=== PATIENT | female | born 1990 | race Hispanic/Latino ===

== ENCOUNTER 2017-10-13 23:19 | Emergency (ER) | payer OTHER ==
[2017-10-14 00:03] VITALS: RESP 16
--- NOTE | 2017-10-14 00:58 | ED PDOC ---
HPI: General Adult Time Seen by Provider: 10/13/17 23:30 Chief Complaint (Nursing): Body Fluid Exposure Chief Complaint (Provider): Body Fluid Exposure History Per: Patient History/Exam Limitations: no limitations Onset/Duration Of Symptoms: Mins Additional Complaint(s): johann Reyes is a 27 year old female with a past medical history of asthma who is up to date for tetanus and is here due to bodily fluid exposure. Patient was working with another patient who was belligerent and combative who pulled out her IV and blood went everywhere into her left eye. Patient states that she immediately washed out her eye with water but is concerned about exposure. Combative patient is Hepatitis C positive and got an HIV test here in April and it was negative. pt is UTD with tetanus PMD: Dr. Hoover Past Medical History Reviewed: Historical Data, Nursing Documentation, Vital Signs Vital Signs: Last Vital Signs Temp 97.9 F 10/14/17 03:02 Pulse 82 10/14/17 03:02 Resp 16 10/14/17 03:02 BP 116/72 10/14/17 03:02 Pulse Ox 100 10/17/17 21:01 - Medical History PMH: Asthma - Surgical History Other surgeries: adenoids removed - Family History Family History: States: Unknown Family Hx - Social History Current smoker - smoking cessation education provided: No Alcohol: Social Drugs: Denies - Allergies Allergies/Adverse Reactions: Allergies Allergy/AdvReac Type Severity Reaction Status Date / Time Penicillins Allergy RASH Verified 10/13/17 23:55 Review of Systems ROS Statement: Except As Marked, All Systems Reviewed And Found Negative Eyes: Positive for: Other (someone else's blood in eye) Physical Exam - Reviewed Nursing Documentation Reviewed: Yes Vital Signs Reviewed: Yes - Physical Exam Appears: Positive for: Well, Non-toxic, No Acute Distress Head Exam: Positive for: ATRAUMATIC Skin: Positive for: Normal Color, Warm, DRY Eye Exam: Positive for: EOMI, Normal appearance, PERRL ENT: Positive for: Normal ENT Inspection Neck: Positive for: Normal, Painless ROM Cardiovascular/Chest: Positive for: Regular Rate, Rhythm Respiratory: Positive for: CNT, Normal Breath Sounds Gastrointestinal/Abdominal: Positive for: Normal Exam, Soft Back: Positive for: Normal Inspection Extremity: Positive for: Normal ROM Neurologic/Psych: Positive for: Alert, Oriented. Negative for: Motor/Sensory Deficits - ECG O2 Sat by Pulse Oximetry: 100 (RA) Pulse Ox Interpretation: Normal Medical Decision Making Medical Decision Making: Time: 00:45 Combative patient was hiv negative here bloodwork ordered on this patient and will follow up in [facility] Patient advised to follow up with outpatient [facility]. Scribe Attestation: Documented by, Mikayla Bello acting as a scribe for Paloma Ku MD. Provider Scribe Attestation: All medical record entries made by the Scribe were at my direction and personally dictated by me. I have reviewed the chart and agree that the record accurately reflects my personal performance of the history, physical exam, medical decision making, and the department course for this patient. I have also personally directed, reviewed, and agree with the discharge instructions and disposition. Disposition - Clinical Impression Clinical Impression: Patient exposure to body fluids - Patient ED Disposition Is Patient to be Admitted: No Counseled Patient/Family Regarding: Studies Performed, Diagnosis, Need For Followup - Disposition Disposition: Routine/Home Disposition Time: 01:35 Condition: IMPROVED Additional Instructions: follow up with [facility] Forms: [employer] (Italian)
[2017-10-14 03:03] VITALS: BP 116/72; PULSE 82; TEMP 97.9
[2017-10-17 21:01] VITALS: O2SAT 100
== END 2017-10-14 03:21 | disposition home or self-care (01) ==
LOC: H.ER 23:19
DX: Z77.21 Contact with and (suspected) exposure to potentially hazardous body fluids (principal); Y99.0 Civilian activity done for income or pay